=== PATIENT | male | born 1960 | race Caucasian/White ===

== ENCOUNTER 2017-06-16 10:18 | Emergency (ER) | payer OTHER ==
[2017-06-16 11:49] VITALS: BP 124/83
--- NOTE | 2017-06-16 12:27 | UC ---
Abdominal Pain Male HPI - HPI Summary HPI Summary: 24 HOURS OF WATERY DIARRHEA, NAUSEA AND CRAMPY ABDOMINAL PAIN. NO FEVER. NO RECENT TRAVEL OR CHANGE IN MEDS. - History of Current Complaint Chief Complaint: UCGI Stated Complaint: DIARRHEA, NAUSEA, FATIGUE Time Seen by Provider: 06/16/17 12:16 Hx Obtained From: Patient Onset/Duration: Sudden Onset, Lasting Days - 1 DAY, Still Present Severity Initially: Moderate Severity Currently: Moderate Pain Intensity: 0 Pain Scale Used: 0-10 Numeric Location: Diffuse Radiates: No Character: Cramping Aggravating Factor(s): Nothing Alleviating Factor(s): Nothing Associated Signs And Symptoms: Positive: Decreased Appetite, Nausea, Diarrhea. Negative: Fever, Back Pain, Constipation, Blood in Stool, Urinary Symptoms, Vomiting - Allergies/Home Medications Allergies/Adverse Reactions: Allergies Allergy/AdvReac Type Severity Reaction Status Date / Time No Known Allergies Allergy Verified 06/16/17 11:45 PMH/Surg Hx/FS Hx/Imm Hx Cardiovascular History: Hypertension GI/ History: Gastroesophageal Reflux - Surgical History Surgical History: None - Family History Known Family History: Positive: Cardiac Disease, Hypertension - Social History Alcohol Use: Weekly Substance Use Type: None Smoking Status (MU): Heavy Every Day Tobacco Smoker Type: Cigarettes Amount Used/How Often: 1/2 ppd Review of Systems Constitutional: Negative Respiratory: Negative Cardiovascular: Negative Gastrointestinal: Abdominal Pain, Diarrhea, Nausea Genitourinary: Negative All Other Systems Reviewed And Are Negative: Yes Physical Exam Triage Information Reviewed: Yes Appearance: Well-Appearing, No Pain Distress, Well-Nourished Vital Signs: Initial Vital Signs Temp 98 F 06/16/17 11:43 Pulse 68 06/16/17 11:43 Resp 17 06/16/17 11:43 BP 124/83 06/16/17 11:43 Pulse Ox 98 06/16/17 11:43 Vital Signs Reviewed: Yes Eyes: Positive: Conjunctiva Clear ENT: Positive: Hearing grossly normal, Pharynx normal, TMs normal Neck: Positive: Supple, Nontender, No Lymphadenopathy Respiratory Exam: Normal Cardiovascular: Positive: Pulses Normal, Other: - OCCASIONAL ECTOPY Abdomen Description: Positive: Soft, Other: - TTP DIFFUSELY. Negative: CVA Tenderness (R), CVA Tenderness (L) Bowel Sounds: Positive: Hyperactive Musculoskeletal: Positive: No Edema Neurological: Positive: Alert Psychological: Positive: Age Appropriate Behavior Skin: Negative: rashes Abd Pain Male Course/Dx - Differential Dx/Clinical Impression Provider Diagnoses: ACUTE GASTROENTERITIS Discharge - Sign-Out/Discharge Documenting (check all that apply): Discharge - Discharge Plan Condition: Stable Disposition: HOME Prescriptions: Ondansetron ODT TAB* [Zofran Odt TAB*] 4 mg PO Q6H PRN #20 tab.odt PRN Reason: Nausea/Vomiting Patient Education Materials: Gastroenteritis (ED) Forms: *Work Release Referrals: Oliver Brasher MD [Primary Care Provider] - If Needed Additional Instructions: GASTROENTERITIS: You have gastroenteritis ("intestinal flu"). This disease is usually caused by a virus. There is no specific treatment. The disease will end by itself. For now, the main danger is dehydration. Give clear liquids. Examples include Pedialyte, Gatorade, clear broth, juices, flat sodas, and jello water. Medications may be prescribed by the physician for special cases. Once tolerated, the clear liquid diet may be supplemented with rice, cereal, toast, applesauce, or bananas. Call the physician or go to the hospital if vomiting increases or blood appears in the bowel movement or vomitus; if you fail to improve, or if signs of dehydration occur (tongue and mouth become dry, lethargy). ENSURE ADEQUATE HYDRATION. CLEAR LIQUIDS, BLAND DIET. AVOID CAFFEINE, DAIRY, GREASY, SPICY FOODS. ONCE YOU ARE TOLERATING CLEAR LIQUIDS YOU CAN ADVANCE TO SIMPLE, BLAND FOODS. GO TO THE ER WITHOUT FAIL IF YOU DEVELOP WORSENING PAIN, FEVER, MAHI BLOOD PER RECTUM OR ANY OTHER CONCERNING SYMPTOMS. - Billing Disposition and Condition Condition: STABLE Disposition: HOME
== END 2017-06-16 12:36 | disposition home or self-care (01) ==
LOC: UCCORT 10:18
DX: K52.9 Noninfective gastroenteritis and colitis, unspecified (principal); I10 Essential (primary) hypertension; F17.210 Nicotine dependence, cigarettes, uncomplicated
CPT/HCPCS: 99212; G0463

== ENCOUNTER 2019-03-08 10:57 | Emergency (ER) | payer BC ==
[2019-03-08 11:16] VITALS: BP 126/90
--- NOTE | 2019-03-08 11:38 | UC ---
Skin Complaint HPI - HPI Summary HPI Summary: facial lesions x 3 days redness and swelling right side of the face, mild tenderness, denies any blisters , no discharge, no fever, no chills, has swollen gland - History of Current Complaint Chief Complaint: UCSkin Time Seen by Provider: 03/08/19 11:23 Stated Complaint: SWOLLEN GLAND,SKIN COMPLAINT Hx Obtained From: Patient Onset/Duration: Gradual Onset, Lasting Days - 3, Still Present Timing: Constant Onset Severity: Moderate Current Severity: Moderate Pain Intensity: 3 Pain Scale Used: 0-10 Numeric Location: Discrete - right side of face Character: Swelling, Pain, Redness, Raised, Painful Aggravating Factor(s): Touch Alleviating Factor(s): Nothing Associated Signs & Symptoms: Positive: Tenderness. Negative: Numbness, Fever, Chills, Drainage, Bruising - Allergy/Home Medications Allergies/Adverse Reactions: Allergies Allergy/AdvReac Type Severity Reaction Status Date / Time No Known Allergies Allergy Verified 03/08/19 11:10 PMH/Surg Hx/FS Hx/Imm Hx Cardiovascular History: Hypertension - Surgical History Surgical History: None - Family History Known Family History: Positive: Cardiac Disease, Hypertension - Social History Alcohol Use: Weekly Alcohol Amount: 3xWEEK Substance Use Type: None Smoking Status (MU): Heavy Every Day Tobacco Smoker Type: Cigarettes Amount Used/How Often: 1/2 ppd Review of Systems All Other Systems Reviewed And Are Negative: Yes Is Patient Immunocompromised?: No Physical Exam Triage Information Reviewed: Yes Appearance: Well-Appearing, No Pain Distress, Well-Nourished Vital Signs: Initial Vital Signs Temp 98.8 F 03/08/19 11:11 Pulse 63 03/08/19 11:11 Resp 16 03/08/19 11:11 BP 126/90 03/08/19 11:11 Pulse Ox 98 03/08/19 11:11 Vital Signs Reviewed: Yes Eyes: Positive: Conjunctiva Clear ENT: Positive: Normal ENT inspection, Hearing grossly normal, Pharynx normal Neck: Positive: Supple, Nontender, Enlarged Nodes @ - right anterior cervical Respiratory: Positive: Chest non-tender, Lungs clear, Normal breath sounds Cardiovascular: Positive: RRR, No Murmur, Pulses Normal Skin: Positive: Other - papular lesions x 2 right side of face, + erythema, tender to touch , no discharge Course/Dx - Course Course Of Treatment: hypertension : cont. with current meds , monitor your bp , follow up with your pcp - Diagnoses Provider Diagnosis: Cellulitis, face, Hypertension Discharge ED - Sign-Out/Discharge Documenting (check all that apply): Patient Departure All imaging exams completed and their final reports reviewed: No Studies - Discharge Plan Condition: Stable Disposition: HOME Prescriptions: Cephalexin CAP* [Keflex CAP*] 500 mg PO TID #30 cap Patient Education Materials: Cellulitis (ED) Referrals: Oliver Brasher MD [Primary Care Provider] - If Needed - Billing Disposition and Condition Condition: STABLE Disposition: Home
== END 2019-03-08 11:30 | disposition home or self-care (01) ==
LOC: UCCORT 10:57
DX: L03.211 Cellulitis of face (principal); I10 Essential (primary) hypertension; F17.210 Nicotine dependence, cigarettes, uncomplicated
CPT/HCPCS: 99212; G0463